=== PATIENT | male | born 1985 | race Caucasian/White ===

== ENCOUNTER 2017-09-04 14:58 | Emergency (ER) | payer OTHER ==
[~2017-09-04] VITALS: Ht 167.6 cm; Wt 72.6 kg
[2017-09-04 15:30] VITALS: BP 113/78
[2017-09-04] MEDS ORDERED: PALI234S IM (15:37)
[2017-09-04] MEDS ORDERED: CITA20TA15 PO (15:37)
[2017-09-04] MEDS ORDERED: BEN50 PO (15:37)
[2017-09-04] MEDS ORDERED: DIVA500E1 PO (15:37)
[2017-09-04] MEDS ORDERED: QUET50TA (15:37)
[2017-09-04] MEDS ORDERED: KETOROLAC 60 MG/2 ML VIAL IM ONE (16:00)
[2017-09-04] MEDS ORDERED: DEXAMETHASONE 4 MG/ML VIAL PO ONE (16:00)
--- NOTE | 2017-09-04 16:05 | NUR ---
32/M BIB FRIEND C/O THROAT SWELLING STS WORSENING EPISODE STARTED 6 HRS AGO. AAOX4, PERRLA BREATHING EVEN AND UNLABORED ERMD NOTIFIED OF PATIENT STATUS.
[2017-09-04 16:54] VITALS: BP 121/72
--- NOTE | 2017-09-04 16:54 | NUR ---
Patient discharged with v/s stable. Written and verbal after care instructions given and explained. Patient alert, oriented and verbalized understanding of instructions. Ambulatory with steady gait. All questions addressed prior to discharge. ID band removed. Patient advised to follow up with PMD. Rx of CEPACOL LOZENGES AND MOTRIN 600MG given. Patient educated on indication of medication including possible reaction and side effects. Opportunity to ask questions provided and answered.
== END 2017-09-04 16:54 | disposition home or self-care (01) ==
LOC: MED 14:58
DX: J03.90 Acute tonsillitis, unspecified (principal); F20.9 Schizophrenia, unspecified
CPT/HCPCS: 87081; 96372; 99284; J1100; J1885